=== PATIENT | female | born 1995 | race Caucasian/White ===

== ENCOUNTER 2022-04-30 05:30 | Inpatient (IN) ==
[2022-04-30] MEDS ORDERED: Metoclopramide 10 MG/2 ML VIAL IVP ONE (05:59)
[2022-04-30] MEDS ORDERED: Ringers Solution, Lactated 1,000 ML IVC ONE (05:59)
[2022-04-30] MEDS ORDERED: Famotidine 20 MG/2 ML VIAL IVP ONE (05:59)
[2022-04-30] MEDS ORDERED: CeFAZolin 2,000 MG/120 ML BAG IVPB ONE (05:59)
[2022-04-30 07:00] LABS: Basophils % 0.2 %; Eosinophils # 0.3 K/mcL (0.0-0.6); Eosinophils % 2.6 %; Hemoglobin 11.3 g/dL (11.5-15.4); Immature Granulocytes % 0.4 % (0-4); Lymphocytes # 2.4 K/mcL (0.6-4.6); Lymphocytes % 24.2 %; Mean Corpuscular HGB Conc 34.2 g/dL (31.6-35.5); Mean Corpuscular Hemoglobin 30.6 pg (28.0-33.3); Mean Corpuscular Volume 89.4 fL (83.0-100.0); Mean Platelet Volume 10.4 fL (9.4-12.4); Monocytes # 0.6 K/mcL (0.0-1.3); Monocytes % 5.8 %; Neutrophils # 6.7 K/mcL (1.6-8.9); Platelet Count 218 K/mcL (140-400); Red Blood Count 3.69 M/mcL (3.82-4.97); Red Cell Distribution Width 13.2 % (11.5-14.5); Segmented Neutrophils % 66.8 %
[2022-04-30] MEDS ORDERED: *HR* Morphine Sulfate/PF 10 MG/10 ML AMPUL ONE (07:22)
[2022-04-30] MEDS ORDERED: EPHEDrine 50 MG/ML VIAL ONE (07:22)
[2022-04-30] MEDS ORDERED: Ketorolac 30 MG/ML VIAL ONE (07:22)
[2022-04-30] MEDS ORDERED: *HR* FentaNYL (PF) 100 MCG/2 ML VIAL ONE (07:22)
[2022-04-30] MEDS ORDERED: Ondansetron 4 MG/2 ML VIAL ONE (07:22)
[2022-04-30] MEDS ORDERED: Acetaminophen IV 1,000 MG/100 ML BAG IVPB ONE (07:23)
[2022-04-30] MEDS ORDERED: Ringers Solution, Lactated 1,000 ML ONE ×2 (07:26→08:06)
[2022-04-30] MEDS ORDERED: Ondansetron 4 MG/2 ML VIAL IVP PRN ×2 (07:33→11:44)
[2022-04-30] MEDS ORDERED: *HR* HYDROmorphone PF 0.5 MG/0.5 ML SYRINGE IVP PRN (07:33)
[2022-04-30 07:59] LABS: Amphetamine Screen,Urine Negative ng/mL (Cutoff=1000); Barbiturate Screen,Urine Negative ng/mL (Cutoff=200); Benzodiazepines Screen,Urine Negative ng/mL (Cutoff=200); Cannabinoid Screen,Urine Positive ng/mL (Cutoff = 50); Cocaine Screen,Urine Negative ng/mL (Cutoff= 300); Opiate Screen,Urine Negative ng/mL (Cutoff=300); Phencyclidine Screen,Urine Negative ng/mL (Cutoff=25)
[2022-04-30] MEDS ORDERED: Nicotine 14 MG PATCH.TD24 TD SCH (09:30)
[2022-04-30] MEDS ORDERED: Oxytocin 30 UNIT/503 ML BAG IVC ONE (10:46)
[2022-04-30] MEDS ORDERED: Rho Immune Globulin 1,500 UNIT SYRINGE IM ONE (11:44)
[2022-04-30] MEDS ORDERED: Metoclopramide 10 MG/2 ML VIAL IVP PRN (11:44)
[2022-04-30] MEDS ORDERED: CeFAZolin 2,000 MG/120 ML BAG IVPB SCH ×2 (12:00→16:00)
[2022-04-30] MEDS: metroNIDAZOLE 500 MG TABLET PO SCH ×3 (12:19→20:08)
[2022-04-30] MEDS: *HR* OxyCODONE Immed Rel 5 MG TABLET PO PRN ×3 (12:19→21:04)
[2022-04-30] MEDS: Ibuprofen 600 MG TABLET PO SCH ×2 (13:58→20:07)
[2022-04-30] MEDS: Acetaminophen 325 MG TABLET PO SCH ×2 (13:58→20:07)
[2022-04-30] MEDS: Simethicone 80 MG TAB.CHEW PO PRN (21:32)
[2022-04-30] MEDS ORDERED: Lanolin 7 G OINT...G. TP PRN (22:14)
[2022-05-01] MEDS: Acetaminophen 325 MG TABLET PO SCH ×4 (00:05→18:30)
[2022-05-01] MEDS: *HR* OxyCODONE Immed Rel 5 MG TABLET PO PRN ×5 (02:03→22:37)
[2022-05-01] MEDS: Ibuprofen 600 MG TABLET PO SCH ×4 (02:04→22:37)
[2022-05-01 04:55] LABS: Basophils % 0.2 %; Eosinophils # 0.1 K/mcL (0.0-0.6); Eosinophils % 0.8 %; Hematocrit 28.9 % (35.3-44.9); Immature Granulocytes % 0.4 % (0-4); Lymphocytes # 2.2 K/mcL (0.6-4.6); Lymphocytes % 19.1 %; Mean Corpuscular HGB Conc 32.9 g/dL (31.6-35.5); Mean Corpuscular Hemoglobin 30.5 pg (28.0-33.3); Mean Corpuscular Volume 92.9 fL (83.0-100.0); Mean Platelet Volume 10.6 fL (9.4-12.4); Monocytes # 0.6 K/mcL (0.0-1.3); Monocytes % 5.6 %; Neutrophils # 8.4 K/mcL (1.6-8.9); Platelet Count 199 K/mcL (140-400); Red Blood Count 3.11 M/mcL (3.82-4.97); Red Cell Distribution Width 12.9 % (11.5-14.5); Segmented Neutrophils % 73.9 %; White Blood Count 11.4 K/mcL (4.3-11.1)
[2022-05-01 04:58] LABS: Hemoglobin 9.5 g/dL (11.5-15.4)
[2022-05-01] MEDS: Prenatal Vit/FA 1 EACH TABLET PO SCH (10:25)
[2022-05-01] MEDS: metroNIDAZOLE 500 MG TABLET PO SCH ×3 (10:25→20:58)
[2022-05-01 19:22] VITALS: O2SAT 98
[2022-05-01] MEDS ORDERED: Nicotine 14 MG PATCH.TD24 TD SCH (21:00)
[2022-05-01] MEDS: Simethicone 80 MG TAB.CHEW PO PRN (22:37)
[2022-05-02] MEDS: Acetaminophen 325 MG TABLET PO SCH ×3 (00:40→12:04)
[2022-05-02] MEDS: Ibuprofen 600 MG TABLET PO SCH ×2 (04:16→12:04)
[2022-05-02] MEDS: *HR* OxyCODONE Immed Rel 5 MG TABLET PO PRN ×2 (04:16→09:04)
[2022-05-02 08:31] VITALS: BP 110/75; PULSE 68; TEMP 97.8
[2022-05-02] MEDS: Prenatal Vit/FA 1 EACH TABLET PO SCH (09:04)
== END 2022-05-02 12:35 | disposition home or self-care (01) | DRG 539 ==
LOC: 1NENULAB 05:46 → 1NENUOBS 11:29
PROVIDERS: ADMIT Obstetrics & Gynecology; ATTEND Obstetrics & Gynecology